=== PATIENT | male | born 1955 | race Hispanic/Latino ===

== ENCOUNTER 2020-05-13 17:10 | Inpatient (IN) | payer OTHER ==
[2020-05-13 19:00] LABS: Absolute Lymphocytes (CBC) 0.8 K/uL (0.7-4.9); Basophils % 0.4 % (0-1.3); Hematocrit 43.2 % (39.6-49.0); Lymphocytes % 3.9 % (15.3-44.8); MPV 7.9 fL (7.6-11.3); RBC Red Blood Cell Count 4.31 M/uL (4.33-5.43)
[2020-05-13 19:03] LABS: Protime INR 1.22
[2020-05-13 19:20] LABS: ALT/SGPT 24 U/L (12-78); AST/SGOT 34 U/L (15-37); Alkaline Phosphatase 61 U/L (45-117); BUN Blood Urea Nitrogen 20 mg/dL (7-18); Bicarbonate 24 mmol/L (21-32); Bilirubin Direct 0.4 mg/dL (0-0.2); Bilirubin Total 1.3 mg/dL (0.2-1.0); Glucose Level 139 mg/dL (74-106); Magnesium 2.4 mg/dL (1.8-2.4); NT PRO-BNP 1478 pg/mL (<125); Potassium 3.9 mmol/L (3.5-5.1); Protein, Total 7.9 g/dL (6.4-8.2); Sodium Level 136 mmol/L (136-145); Troponin (Emerg Dept Use Only) < 0.02 ng/mL (0.0-0.045)
[2020-05-13 19:23] LABS: Blood Morphology Comment NOT SEEN (NOT SEEN); Platelet Estimate ADEQ
--- NOTE | 2020-05-13 20:04 | RAD REPORT ---
EXAM DESCRIPTION: RAD - Chest Single View - 05/13/2020 7:02 pm CLINICAL HISTORY: general weakness, hypertension, back pain COMPARISON: July 2016 TECHNIQUE: AP portable chest image was obtained 05/13/2020 7:02 pm . FINDINGS: No peripheral mass or consolidation. Interstitial markings are prominent but not clearly d ifferent. Heart and vasculature are normal. No measurable pleural effusion and no pneumothorax. No ac jaden bony abnormality seen. No acute aortic findings suspected. IMPRESSION: No acute cardiopulmonary process. No significant change from comparison.
--- NOTE | 2020-05-13 21:31 | ER ---
Nurse's Notes [facility] [place] [address] [place] Name: Jorje Stewart Age: 64 yrs Sex: Male : 1955 Arrival Date: 05/13/2020 Time: 17:18 Bed 26 Private MD: Diagnosis: Urinary tract infection, site not specified Presentation: 05/13 17:18 Chief complaint: Chief complaint: EMS states: Back pain, upper to lower, x 2 days. ca1 Headache x 2 days. No fever. No medical Hx. No allergies. No medications. VS WNL. BGL 115. Risk Assessment: Do you want to hurt yourself or someone else? Patient reports no desire to harm self or others. 17:18 Method Of Arrival: EMS: [facility] ca1 17:18 Acuity: ARGENIS 3 ca1 17:24 Coronavirus screen: Client denies travel out of the [place] in the last 14 days. chills, ca1 cough unrelated to allergies, diarrhea, fatigue, headache, nausea, Client presents with at least one sign or symptom that may indicate coronavirus-19. Standard/surgical mask placed on the client. Provider contacted for isolation considerations. Ebola Screen: Patient negative for fever greater than or equal to 101.5 degrees Fahrenheit, and additional compatible Ebola Virus Disease symptoms Patient denies exposure to infectious person. Patient denies travel to an Ebola-affected area in the 21 days before illness onset. No symptoms or risks identified at this time. Initial Sepsis Screen: Does the patient meet any 2 criteria? No. Patient's initial sepsis screen is negative. Does the patient have a suspected source of infection? No. Patient's initial sepsis screen is negative. Onset of symptoms was May 13, 2020. 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 ca1 17:31 Chief complaint: Patient states: Cough x 10 days. Not feeling well for 10 days. Was ca1 diagnosed with UTI 10-11 days ago, still completed ABX. Had diarrhea within 10 days ago. Not at this time. Reports nausea. Here for generalized weakness. Denies back pain. Historical: - Allergies: 17:29 No Known Allergies; ca1 - Home Meds: 17:29 meds for UTI [Active]; meds for diarrhea [Active]; Meds for Headache [Active]; ca1 - PMHx: 17:29 Hypertension; ca1 - PSHx: 17:29 Hernia repair; ca1 - Immunization history:: Adult Immunizations not up to date. - Social history:: Smoking status: Patient/guardian denies using tobacco, the patient reports quitting approximately 1 years ago. Screenin:30 Abuse screen: Denies threats or abuse. Denies injuries from another. Nutritional jl7 screening: No deficits noted. Tuberculosis screening: No symptoms or risk factors identified. Fall Risk IV access (20 points). Total Edwards Fall Scale indicates No Risk (0-24 pts). Assessment: 18:00 General: Appears in no apparent distress. 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 Pain: Complains of pain in BURGER, stone arms, stone hips. Neuro: Level of Consciousness is awake, alert, obeys commands, Oriented to person, place, time, situation. Cardiovascular: Patient's skin is warm and dry. Respiratory: Airway is patent Respiratory effort is even, unlabored, Respiratory pattern is regular, symmetrical, Denies cough, shortness of breath. GI: Patient currently denies diarrhea, nausea, vomiting. : Reports burning with urination. Derm: Skin is pink, warm \T\ dry. 19:00 Reassessment: Patient appears in no apparent distress at this time. No changes from ll1 previously documented assessment. Patient and/or family updated on plan of care and expected duration. Pain level reassessed. Patient is alert, oriented x 3, equal unlabored respirations, skin warm/dry/pink. 20:00 Reassessment: Patient appears in no apparent distress at this time. No changes from ll1 previously documented assessment. Patient and/or family updated on plan of care and expected duration. Pain level reassessed. Patient is alert, oriented x 3, equal unlabored respirations, skin warm/dry/pink. given warm blanket. 21:00 Reassessment: Patient appears in no apparent distress at this time. No changes from ll1 previously documented assessment. Patient and/or family updated on plan of care and expected duration. Pain level reassessed. Patient is alert, oriented x 3, equal unlabored respirations, skin warm/dry/pink. given another warm blanket, temp rechecked. 22:00 Reassessment: Patient appears in no apparent distress at this time. No changes from ll1 previously documented assessment. Patient and/or family updated on plan of care and expected duration. Pain level reassessed. Patient is alert, oriented x 3, equal unlabored respirations, skin warm/dry/pink. 23:00 Reassessment: Patient appears in no apparent distress at this time. No changes from ll1 previously documented assessment. Patient and/or family updated on plan of care and expected duration. Pain level reassessed. Patient is alert, oriented x 3, equal unlabored respirations, skin warm/dry/pink. Vital Signs: 17:24 BP 110 / 89; Pulse 107; Resp 18 S; Temp 98(O); Pulse Ox 97% on R/A; Weight 90.72 kg ca1 (R); Height 5 ft. 9 in. (175.26 cm) (R); 18:30 BP 124 / 79; Pulse 88; Resp 17; Pulse Ox 97% ; jl7 19:17 BP 138 / 82; Pulse 90; Resp 18; Pulse Ox 96% ; jl7 20:00 BP 138 / 95; Pulse 104; Resp 18; Pulse Ox 98% on R/A; ll1 21:00 BP 138 / 80; Pulse 93; Resp 18; Temp 98.7; Pulse Ox 97% on R/A; ll1 22:00 BP 148 / 77; Pulse 93; Resp 18; Pulse Ox 98% ; ll1 23:38 BP 116 / 75; Pulse 75; Resp 18; Pulse Ox 95% on R/A; ll1 23:56 BP 119 / 72; Pulse 75; Resp 18; Pulse Ox 95% on R/A; ll1 17:24 Body Mass Index 29.54 (90.72 kg, 175.26 cm) ca1 ED Course: 17:18 Patient arrived in ED. ca1 17:20 Triage completed. ca1 17:29 Arm band placed on right wrist. ca1 18:01 Chino Downing, DAVIS is Primary Nurse. jl7 18:03 Scott Hewitt PA is PHCP. cp 18:03 Arnol Chapman MD is Attending Physician. cp 18:30 Patient has correct armband on for positive identification. Placed in gown. Bed in low jl7 position. Call light in reach. Side rails up X2. monitoring coordinator on. Pulse ox on. NIBP on. 18:40 Initial lab(s) drawn, by me, sent to lab. EKG done, by ED staff, reviewed by Scott MCKEON Strep swab sent to lab. COVID-19 swab sent to lab. Inserted saline lock: 20 gauge in right wrist, using aseptic technique. Blood collected. 19:02 XRAY Chest (1 view) In Process Unspecified. EDMS 19:18 Report given to DAVIS Hope. jl7 21:30 Jordy Hart is Hospitalizing Provider. cp 22:10 CT Abd/Pelvis - IV Contrast Only In Process Unspecified. EDMS 23:36 No provider procedures requiring assistance completed. Patient admitted, IV remains in ll1 place. Administered Medications: 21:00 Drug: NS 0.9% 500 ml Route: IV; Rate: bolus; Site: right antecubital; ll1 23:31 Follow up: Response: No adverse reaction; RASS: Alert and Calm (0); IV Status: ll1 Completed infusion; IV Intake: 500ml 21:40 Drug: Rocephin - (cefTRIAXone) 1 grams Route: IVPB; Infused Over: 30 mins; Site: right ll1 antecubital; 23:31 Follow up: Response: No adverse reaction; RASS: Alert and Calm (0); IV Status: ll1 Completed infusion; IV Intake: 20ml Intake: 23:31 IV: 500ml; Total: 500ml. ll1 23:31 IV: 20ml; Total: 520ml. ll1 Outcome: 21:30 Decision to Hospitalize by Provider. cp 23:55 Admitted to Tele accompanied by tech, via stretcher, room 403, with chart, Report ll1 called to DAVIS Marcelino on 23:55 Condition: stable 23:55 Instructed on the need for admit. 05/14 00:01 Patient left the ED. ll1 Signatures: Dispatcher [employer] EDMS Scott Hewitt PA PA cp Chino Downing RN RN jl7 Liliana Manley RN RN ca1 Lewis, Lynsay, RN RN ll1 Corrections: (The following items were deleted from the chart) 05/13 17:26 17:24 BP 110 / 89; Pulse 107bpm; Resp 18bpm; Spontaneous; Pulse Ox 97% RA; Temp 98F ca1 Oral; 90.72 kg Reported; Height 6 ft. 3 in. Reported; BMI: 25.0; ca1 17:36 17:24 Coronavirus screen: Client denies travel out of the [place] in the last 14 days. At ca1 this time, the client does not indicate any symptoms associated with coronavirus-19. ca1 17:38 17:31 Chief complaint: Patient states: Cough x 10 days. Not feeling well for 10 days. ca1 Was diagnosed with UTI 10-11 days ago, still completed ABX. Had diarrhea within 10 days ago. Not at this time. Reports nausea. ca1 21:02 20:00 Reassessment: Patient appears in no apparent distress at this time. No changes ll1 from previously documented assessment. Patient and/or family updated on plan of care and expected duration. Pain level reassessed. Patient is alert, oriented x 3, equal unlabored respirations, skin warm/dry/pink. ll1
--- NOTE | 2020-05-13 21:31 | EDPHYS ---
Physician Documentation [facility] Name: Jorje Stewart Age: 64 yrs Sex: Male : 1955 Arrival Date: 05/13/2020 Time: 17:18 Bed 26 Private MD: ED Physician Arnol Chapman HPI: 05/13 18:48 This 64 yrs old Male presents to ER via EMS with complaints of General cp Weakness. 18:50 The patient's problem is reported as weakness, that is generalized. Onset: The cp symptoms/episode began/occurred 1 week(s) ago. Duration: The episode is continuous. Associated signs and symptoms: Pertinent positives: abdominal pain, urinary symptoms, Pertinent negatives: chest pain, confusion, diarrhea, headache, vomiting. Historical: - Allergies: 17:29 No Known Allergies; ca1 - Home Meds: 17:29 meds for UTI [Active]; meds for diarrhea [Active]; Meds for Headache [Active]; ca1 - PMHx: 17:29 Hypertension; ca1 - PSHx: 17:29 Hernia repair; ca1 - Immunization history:: Adult Immunizations not up to date. - Social history:: Smoking status: Patient/guardian denies using tobacco, the patient reports quitting approximately 1 years ago. ROS: 18:55 Constitutional: Negative for fever, poor PO intake. cp 18:55 Eyes: Negative for injury, pain, redness, and discharge. cp 18:55 ENT: Negative for ear pain, sore throat, difficulty swallowing, difficulty handling secretions. 18:55 Cardiovascular: Negative for chest pain. 18:55 Respiratory: Negative for cough, shortness of breath, wheezing. 18:55 Abdomen/GI: Positive for abdominal pain, Negative for nausea, vomiting, and diarrhea. 18:55 : Positive for urinary symptoms. 18:55 Skin: Negative for rash. 18:55 Neuro: Positive for weakness, Negative for altered mental status, headache. 18:55 All other systems are negative. Exam: 18:47 ECG was reviewed by the Attending Physician. cp 19:00 Constitutional: The patient appears in no acute distress, alert, awake, cp non-diaphoretic, non-toxic, well developed, frail. 19:00 Head/Face: Normocephalic, atraumatic. cp 19:00 Eyes: Periorbital structures: appear normal, Conjunctiva: normal, no exudate, no injection, Sclera: no appreciated abnormality, Lids and lashes: appear normal, bilaterally. 19:00 ENT: External ear(s): are unremarkable, Nose: is normal, Mouth: Lips: moist, Oral mucosa: pink and intact, moist, Posterior pharynx: Airway: no evidence of obstruction, patent, erythema, is not appreciated, exudate, is not appreciated. 19:00 Neck: ROM/movement: is normal, is supple, without pain, no range of motions limitations, no meningismus. 19:00 Chest/axilla: Inspection: normal, Palpation: is normal, no crepitus, no tenderness. 19:00 Cardiovascular: Rate: normal, Rhythm: regular, Edema: is not appreciated, JVD: is not appreciated. 19:00 Respiratory: the patient does not display signs of respiratory distress, Respirations: normal, no use of accessory muscles, no retractions, labored breathing, is not present, Breath sounds: are clear throughout, no decreased breath sounds, no stridor, no wheezing. 19:00 Abdomen/GI: Inspection: abdomen appears normal, Bowel sounds: active, all quadrants, Palpation: soft, in all quadrants, mild abdominal tenderness, in the suprapubic area, rebound tenderness, is not appreciated, voluntary guarding, is not appreciated, involuntary guarding, is not appreciated. 19:00 Back: CVA tenderness, is absent. 19:00 Skin: cellulitis, is not appreciated, no rash present. 19:00 Neuro: Orientation: to person, place \T\ time. Mentation: is normal, Cerebellar function: is grossly normal, Motor: moves all fours, general weakness with no focal deficits, Sensation: is normal. 19:00 CT study not indicated or reported. Reason for not performing CT: no neuro deficits cp Vital Signs: 17:24 BP 110 / 89; Pulse 107; Resp 18 S; Temp 98(O); Pulse Ox 97% on R/A; Weight 90.72 kg ca1 (R); Height 5 ft. 9 in. (175.26 cm) (R); 18:30 BP 124 / 79; Pulse 88; Resp 17; Pulse Ox 97% ; jl7 19:17 BP 138 / 82; Pulse 90; Resp 18; Pulse Ox 96% ; jl7 20:00 BP 138 / 95; Pulse 104; Resp 18; Pulse Ox 98% on R/A; ll1 21:00 BP 138 / 80; Pulse 93; Resp 18; Temp 98.7; Pulse Ox 97% on R/A; ll1 22:00 BP 148 / 77; Pulse 93; Resp 18; Pulse Ox 98% ; ll1 23:38 BP 116 / 75; Pulse 75; Resp 18; Pulse Ox 95% on R/A; ll1 23:56 BP 119 / 72; Pulse 75; Resp 18; Pulse Ox 95% on R/A; ll1 17:24 Body Mass Index 29.54 (90.72 kg, 175.26 cm) ca1 MDM: 18:07 Patient medically screened. cp 19:00 Differential diagnosis: sepsis, uti, electrolyte abnormality, HI, CVA. cp 21:30 Data reviewed: vital signs, nurses notes, lab test result(s), EKG, radiologic studies, cp plain films, and as a result, I will admit patient. 21:30 Test interpretation: by ED physician or midlevel provider: ECG. Physician consultation: trini Hart was contacted at 21:30, regarding admission, to the telemetry unit. patient's condition, and will see patient in ED, shortly, would like further tests performed, CT scan. 05/13 18:21 Order name: Basic Metabolic Panel; Complete Time: 20:37 cp 05/13 20:38 Interpretation: Normal except: GLUC 139; BUN 20; GFR 66. cp 05/13 18:21 Order name: CBC with Diff; Complete Time: 20:37 cp 05/13 21:25 Interpretation: Normal except: WBC 19.6; RBC 4.31; MCV 100.4; KERWIN% 87.5; LYM% 3.9; NEUT cp A 17.1; MNA 1.6. 05/13 18:21 Order name: LFT's; Complete Time: 20:37 cp 08 20:38 Interpretation: Normal except: BILIT 1.3; BILID 0.4; ALB 3.0; GLOB 4.9; A/G 0.6. cp 05/13 18:21 Order name: Magnesium; Complete Time: 20:38 cp 05/13 18:21 Order name: NT PRO-BNP; Complete Time: 20:37 cp 05/13 18:21 Order name: PT-INR; Complete Time: 20:37 cp 08/05 18:21 Order name: Troponin (emerg Dept Use Only); Complete Time: 20:38 cp 08/05 18:21 Order name: COVID-19 cp 08/05 18:21 Order name: Procalcitonin; Complete Time: 20:37 cp 08/05 20:39 Interpretation: Abnormal: Procalcitonin 1.49. cp 08/05 18:21 Order name: Urine Microscopic Only; Complete Time: 22:43 cp 08/05 22:44 Interpretation: Normal except: UWBC 10-20; UBACT 20-50. cp 08/05 19:04 Order name: Manual Differential; Complete Time: 20:37 EDMS 08/05 20:14 Order name: Throat Culture EDMS 08/05 20:54 Order name: Urine Dipstick--Ancillary (enter results); Complete Time: 22:43 mw2 /05 22:44 Interpretation: Normal except: UBLD 2+; UPROT 2+; UESTR TRACE. cp 08/05 18:21 Order name: XRAY Chest (1 view); Complete Time: 20:38 cp 08/05 18:21 Order name: EKG; Complete Time: 18:22 cp 08/05 18:21 Order name: Cardiac monitoring; Complete Time: 19:15 cp 08/05 18:21 Order name: EKG - Nurse/Tech; Complete Time: 19:15 cp 08/05 18:21 Order name: IV Saline Lock; Complete Time: 19:15 cp 08/05 18:21 Order name: Labs collected and sent; Complete Time: 19:14 cp 08/05 18:21 Order name: O2 Per Protocol; Complete Time: 18:26 cp 08/05 18:21 Order name: O2 Sat Monitoring; Complete Time: 18:26 cp 08/05 18:21 Order name: Document PUI#; Complete Time: 23:56 cp 08/05 18:21 Order name: Droplet/Contact Precautions; Complete Time: 18:26 cp 08/05 18:21 Order name: Notify Health Dept [phone]/ ; Complete Time: 23:57 cp 08/05 18:21 Order name: Urine Dipstick-Ancillary (obtain specimen); Complete Time: 23:31 cp 08/05 21:29 Order name: CT Abd/Pelvis - IV Contrast Only cp 05/13 21:47 Order name: Urine Culture EDMS EC:47 Rate is 94 beats/min. Rhythm is regular. SD interval is normal. QRS interval is normal. cp QT interval is normal. T waves are Inverted in leads III, aVR. Interpreted by me. Reviewed by me. Administered Medications: 21:00 Drug: NS 0.9% 500 ml Route: IV; Rate: bolus; Site: right antecubital; ll1 23:31 Follow up: Response: No adverse reaction; RASS: Alert and Calm (0); IV Status: ll1 Completed infusion; IV Intake: 500ml 21:40 Drug: Rocephin - (cefTRIAXone) 1 grams Route: IVPB; Infused Over: 30 mins; Site: right ll1 antecubital; 23:31 Follow up: Response: No adverse reaction; RASS: Alert and Calm (0); IV Status: ll1 Completed infusion; IV Intake: 20ml Disposition: 05/14 08:12 Co-signature as Attending Physician, Arnol Chapman MD I agree with the assessment and kdr plan of care. Disposition: 05/13/20 21:30 Hospitalization ordered by Jordy Hart for Inpatient Admission. Preliminary diagnosis is Urinary tract infection, site not specified. - Bed requested for Telemetry/MedSurg (Inpatient). - Status is Inpatient Admission. ll1 - Condition is Stable. - Problem is new. - Symptoms have improved. Signatures: Dispatcher [employer] EDVT Arnol Chapman MD MD kdr Dodie Witt RN RN tl1 Scott Hewitt PA PA cp Liliana Manley RN RN ca1 Herminia Kong RN RN ll1 Corrections: (The following items were deleted from the chart) 05/13 20:14 18:22 Group A Streptococcus Rapid Sc+[id number].LAB.BRZ ordered. EDMS EDMS 21:25 20:38 Normal except: WBC 19.6; RBC 4.31; MCV 100.4; KERWIN% 87.5; LYM% 3.9; NEUT A 17.1. cpcp 23:14 21:30 Hospitalization Ordered by Jordy Hart for Inpatient Admission. Preliminary tl1 diagnosis is Urinary tract infection, site not specified. Bed requested for Telemetry/MedSurg (Inpatient). Status is Inpatient Admission. Condition is Stable. Problem is new. Symptoms have improved. cp 05/14 00:01 05/13 23:14 05/13/2020 21:30 Hospitalization Ordered by Jordy Hart for Inpatient ll1 Admission. Preliminary diagnosis is Urinary tract infection, site not specified. Bed requested for Telemetry/MedSurg (Inpatient). Status is Inpatient Admission. Condition is Stable. Problem is new. Symptoms have improved. tl1
[2020-05-13] MEDS ORDERED: CEFTRIAXONE/SWI 1gm 1 GM/10 ML SYR ONE (21:43)
[2020-05-13 21:45] LABS: Urine RBC <5 /HPF (NONE SEEN)
[2020-05-13 21:46] LABS: Urine Bacteria 20-50 /HPF (NONE SEEN); Urine Culture Reflex Order REFLEXED
[2020-05-13 21:47] LABS: Urine Blood 2+ (NEG); Urine Glucose NEGATIVE (NEG); Urine Protein 2+ (NEG); Urine Specific Gravity 1.025 (1.005-1.030); Urine pH 5.5 (5.0-7.0)
--- NOTE | 2020-05-13 22:23 | P.HP ---
Certification for Inpatient Patient admitted to: Inpatient With expected LOS: >2 Midnights Practitioner: I am a practitioner with admitting privileges, knowledge of patient current condition, hospital course, and medical plan of care. Services: Services provided to patient in accordance with Admission requirements found in Title 42 Section 412.3 of the Code of Federal Regulations Patient History Date of Service: 05/13/20 Reason for admission: General malaise History of Present Illness: 64-year-old Ethiopian-speaking gentleman with a history of BPH and hypertension presented to the ED with a complaint of general malaise of about 3 days duration. Patient also reported nausea and mild back pain. Blood work in the ED shows leukocytosis. Patient was tachycardic in the ED and meet criteria for sepsis. His pro calcitonin is elevated and UA suggest the presence of UTI. Sepsis protocol initiated in the ED. Patient is admitted for further management of UTI with sepsis. Allergies No Known Allergies Allergy (Verified 07/11/16 08:46) Home Medications: NK [No Home Meds] 05/14/20 - Past Medical/Surgical History Diabetic: No -: BPH -: Hypertension -: Hernia repair - Family History Family History: Reviewed- Non-Contributory - Family History Brother -: Heart disease, Diabetes - Social History Alcohol use: Yes CD- Drugs: No Caffeine use: No Review of Systems Other: Except as documented, all other systems reviewed and negative. Physical Examination - Physical Exam General: Alert, In no apparent distress, Oriented x3 HEENT: Mucous membr. moist/pink, Sclerae nonicteric Neck: Supple, JVD not distended Respiratory: Clear to auscultation bilaterally, Normal air movement Cardiovascular: No edema, Regular rate/rhythm, Normal S1 S2 Capillary refill: <2 Seconds Gastrointestinal: Normal bowel sounds, Soft and benign, Non-distended, No tenderness Musculoskeletal: No swelling, No erythema Integumentary: No rashes Neurological: Normal strength at 5/5 x4 extr, Cranial nerves 3-12 intact - Studies Laboratory Data (last 24 hrs) 05/13/20 18:43: PT 14.3 H, INR 1.22 05/13/20 18:43: WBC 19.6 H, Hgb 14.7, Hct 43.2, Plt Count 211 05/13/20 18:43: Sodium 136, Potassium 3.9, BUN 20 H, Creatinine 1.11, Glucose 139 H, Magnesium 2.4, Total Bilirubin 1.3 H, AST 34, ALT 24, Alkaline Phosphatase 61 Assessment and Plan - Problems (Diagnosis) (1) Sepsis Current Visit: No Status: Acute (2) UTI (urinary tract infection) Onset Date: 07/11/16 Current Visit: No Status: Acute Qualifiers: (3) BPH (benign prostatic hyperplasia) Current Visit: No Status: Acute (4) HTN (hypertension) Current Visit: No Status: Acute Qualifiers: (5) Acute pyelonephritis Current Visit: Yes Status: Acute - Plan Admit to the medical floor. Continue sepsis protocol initiated in the ED. Treat with IV vancomycin and cefepime Follow urine culture and blood cultures Hydrate with IV normal saline. - Advance Directives Does patient have a Living Will: No Does patient have a Durable POA for Healthcare: No
[2020-05-14 01:43] VITALS: BMI 23.9
[2020-05-14] MEDS ORDERED: NA CHLORIDE 0.9% 0 ML ONE (01:57)
[2020-05-14] MEDS ORDERED: VANCOMYCIN 1 GM/VIAL ONE (01:57)
[2020-05-14] MEDS: NA CHLORIDE 0.9% 1,000 ML IV SCH ×3 (01:59→20:46)
[2020-05-14] MEDS: ACETAMINOPHEN 500 MG TAB PO PRN ×4 (02:00→20:44)
[2020-05-14] MEDS: VANCOMYCIN 1.5 GM in NA CHLORIDE 0.9% 500 ML IVPB SCH ×2 (02:00→20:45)
[2020-05-14] MEDS ORDERED: NA CHLORIDE 0.9% 500 ML ONE (02:02)
[2020-05-14] MEDS ORDERED: VANCOMYCIN 500 MG/VIAL ONE (02:02)
[2020-05-14 04:18] LABS: Absolute Lymphocytes (CBC) 0.6 K/uL (0.7-4.9); Basophils % 0.1 % (0-1.3); Hematocrit 39.6 % (39.6-49.0); Lymphocytes % 4.4 % (15.3-44.8); MPV 8.8 fL (7.6-11.3); RBC Red Blood Cell Count 3.93 M/uL (4.33-5.43)
[2020-05-14 04:33] LABS: Albumin 2.6 g/dL (3.4-5.0); Bilirubin Total 1.2 mg/dL (0.2-1.0); Magnesium 1.9 mg/dL (1.8-2.4); Phosphorus 2.2 mg/dL (2.5-4.9); Potassium 3.5 mmol/L (3.5-5.1); Protein, Total 6.8 g/dL (6.4-8.2)
[2020-05-14] MEDS: ENOXAPARIN 40 MG/0.4 ML SQ SCH (07:24)
[2020-05-14] MEDS: POTASS/SODIUM PHOSPHATE 1 PKT POWD.PACK PO SCH ×3 (07:26→10:31)
[2020-05-14] MEDS ORDERED: POTASSIUM 25 MEQ EFFERV TAB PO ONE (08:00)
[2020-05-14] MEDS ORDERED: CEFEPIME 1 GM/VIAL IV SCH (09:00)
[2020-05-14] MEDS: CEFEPIME/SWI 1gm 10 ML IV SCH ×2 (09:26→20:45)
--- NOTE | 2020-05-14 10:00 | P.PN ---
Subjective Date of Service: 05/14/20 Chief Complaint: General malaise Patient states he feels better. He has good appetite. Low-grade fever noted. Physical Examination - Vital Signs Temperature: 97 F Blood Pressure: 141/84 Pulse: 78 Respirations: 18 Pulse Ox (%): 99 - Physical Exam General: Alert, In no apparent distress HEENT: Mucous membr. moist/pink Neck: Supple, JVD not distended Respiratory: Clear to auscultation bilaterally, Normal air movement Cardiovascular: No edema, Regular rate/rhythm, Normal S1 S2 Capillary refill: <2 Seconds Gastrointestinal: Normal bowel sounds, Soft and benign, Non-distended, No tenderness Musculoskeletal: No swelling, No erythema Integumentary: No rashes Neurological: Other (Nonfocal) - Studies Laboratory Data (last 24 hrs) 05/13/20 18:43: PT 14.3 H, INR 1.22 05/13/20 18:43: WBC 19.6 H, Hgb 14.7, Hct 43.2, Plt Count 211 05/13/20 18:43: Sodium 136, Potassium 3.9, BUN 20 H, Creatinine 1.11, Glucose 139 H, Magnesium 2.4, Total Bilirubin 1.3 H, AST 34, ALT 24, Alkaline Phosphatase 61 Assessment And Plan - Current Problems (Diagnosis) (1) Sepsis Current Visit: No Status: Acute (2) UTI (urinary tract infection) Onset Date: 07/11/16 Current Visit: No Status: Acute Qualifiers: (3) BPH (benign prostatic hyperplasia) Current Visit: No Status: Acute (4) HTN (hypertension) Current Visit: No Status: Acute Qualifiers: (5) Acute pyelonephritis Current Visit: Yes Status: Acute - Plan Continue IV vancomycin and cefepime. Follow urine culture and blood cultures Hydrate with IV normal saline. Monitor CBC. Follow COVID 19 test result.
--- NOTE | 2020-05-14 10:29 | RAD REPORT ---
EXAM DESCRIPTION: CT - Abdomen Pelvis W Contrast - 05/13/2020 10:09 pm CLINICAL HISTORY: ABD PAIN COMPARISON: None Available. TECHNIQUE: CT of the abdomen and pelvis performed following IV administration of iodinated contras t. FINDINGS: Lung Bases: Minimal left basilar dependent atelectasis. Bones: Multilevel degenerative endplate spondylosis and facet arthropathy with osseous neural foramin al narrowing. Degenerative disc height narrowing throughout the visualized spine, most severe at L3/4 and L5/S1. Abdomen: Liver: The liver has normal size and density. No intrahepatic biliary dilatation. Gallbladder: No calcified gallstones. Spleen, Pancreas, and Adrenal Glands: The spleen, pancreas, and adrenal glands are unremarkable. Kidneys: No hydronephrosis or obstructing calculus. Ill-defined areas of hypodensity throughout t he left renal cortex with adjacent inflammatory change. Vasculature: Aortoiliac atherosclerosis. IVC is unremarkable. The portal vein is patent. The proxim al visceral and renal arteries are patent. Stomach: The stomach and duodenum have normal course. Other: No free intraperitoneal air. No free fluid or lymphadenopathy. Pelvis: Bladder: Urinary bladder is unremarkable. Bowel: No dilated loops of large or small bowel. Scattered diverticula of the colon. Appendix: Normal appendix. Pelvis: Enlarged prostate. IMPRESSION: 1. Findings suggestive of pyelonephritis of the left kidney. 2. Diverticulosis without evidence of acute diverticulitis. 3. Enlarged prostate. This exam was performed according to our departmental dose-optimization program, which includes autom ated exposure control, adjustment of the mA and/or kV according to patient size and/or use of iterati ve reconstruction technique. Electronically signed by: Garry Escamilla 05/13/2020 10:26 PM CDT Due to temporary technical issues with the PACS/Fluency reporting system, reports are being signed by the in house radiologist without review as a courtesy to ensure prompt reporting. The interpreting r adiologist is fully responsible for the content of the report.
[2020-05-15] MEDS: ACETAMINOPHEN 500 MG TAB PO PRN ×3 (01:20→23:39)
[2020-05-15 04:40] LABS: Absolute Lymphocytes (CBC) 0.6 K/uL (0.7-4.9); Basophils % 0.2 % (0-1.3); Hematocrit 36.8 % (39.6-49.0); Lymphocytes % 6.8 % (15.3-44.8); RBC Red Blood Cell Count 3.65 M/uL (4.33-5.43)
[2020-05-15 04:46] LABS: BUN Blood Urea Nitrogen 14 mg/dL (7-18); Bicarbonate 21 mmol/L (21-32); Glucose Level 116 mg/dL (74-106); Magnesium 1.9 mg/dL (1.8-2.4); Phosphorus 2.6 mg/dL (2.5-4.9); Potassium 3.4 mmol/L (3.5-5.1); Sodium Level 139 mmol/L (136-145)
[2020-05-15] MEDS: NA CHLORIDE 0.9% 1,000 ML IV SCH ×4 (06:15→23:42)
[2020-05-15] MEDS ORDERED: POTASSIUM CL SA 10 MEQ TAB PO ONE ×2 (08:00→17:00)
[2020-05-15] MEDS: ENOXAPARIN 40 MG/0.4 ML SQ SCH (08:17)
[2020-05-15] MEDS: CEFEPIME/SWI 1gm 10 ML IV SCH ×2 (08:18→21:16)
--- NOTE | 2020-05-15 08:57 | P.PN ---
Subjective Date of Service: 05/15/20 Chief Complaint: General malaise Patient states he feels better. He has good appetite. Patient is eating well. No fever since yesterday. Physical Examination - Vital Signs Temperature: 99.8 F Blood Pressure: 149/77 Pulse: 84 Respirations: 16 Pulse Ox (%): 97 - Physical Exam General: Alert, In no apparent distress Neck: Supple Respiratory: Clear to auscultation bilaterally, Normal air movement Cardiovascular: No edema, Regular rate/rhythm, Normal S1 S2 Gastrointestinal: Normal bowel sounds, Soft and benign, Non-distended, No tenderness Musculoskeletal: No swelling, No erythema Integumentary: No rashes Neurological: Other (Nonfocal) Assessment And Plan - Current Problems (Diagnosis) (1) Sepsis Current Visit: No Status: Acute (2) UTI (urinary tract infection) Onset Date: 07/11/16 Current Visit: No Status: Acute Qualifiers: (3) BPH (benign prostatic hyperplasia) Current Visit: No Status: Acute (4) HTN (hypertension) Current Visit: No Status: Acute Qualifiers: (5) Acute pyelonephritis Current Visit: Yes Status: Acute - Plan Urine culture is growing mixed julianna. Blood culture: no growth to date Continue IV vancomycin and cefepime. Follow urine culture and blood cultures Hydrate with IV normal saline. Monitor CBC. I am informed COVID 19 test is negative.
[2020-05-15] MEDS: VANCOMYCIN 1.5 GM in NA CHLORIDE 0.9% 500 ML IVPB SCH (12:42)
[2020-05-15 23:49] VITALS: O2SAT 99
[2020-05-16] MEDS: ACETAMINOPHEN 500 MG TAB PO PRN (04:51)
[2020-05-16 06:19] LABS: Absolute Lymphocytes (CBC) 0.5 K/uL (0.7-4.9); Basophils % 0.5 % (0-1.3); Hematocrit 35.6 % (39.6-49.0); Lymphocytes % 7.3 % (15.3-44.8); MPV 8.8 fL (7.6-11.3); RBC Red Blood Cell Count 3.55 M/uL (4.33-5.43)
[2020-05-16 06:36] LABS: BUN Blood Urea Nitrogen 9 mg/dL (7-18); Bicarbonate 22 mmol/L (21-32); Glucose Level 100 mg/dL (74-106); Sodium Level 140 mmol/L (136-145)
[2020-05-16 06:47] LABS: Potassium 3.8 mmol/L (3.5-5.1)
[2020-05-16] MEDS: VANCOMYCIN 1.5 GM in NA CHLORIDE 0.9% 500 ML IVPB SCH (07:00)
[2020-05-16] MEDS: CEFEPIME/SWI 1gm 10 ML IV SCH (08:13)
[2020-05-16] MEDS: ENOXAPARIN 40 MG/0.4 ML SQ SCH (08:14)
--- NOTE | 2020-05-16 08:43 | P.DS ---
Admission Date: 05/13/20 Discharge Date: 05/16/20 Disposition: ROUTINE DISCHARGE Discharge Condition: FAIR Reason for Admission: General malaise - Problems (1) Sepsis Current Visit: No Status: Acute (2) UTI (urinary tract infection) Onset Date: 07/11/16 Current Visit: No Status: Acute Qualifiers: (3) BPH (benign prostatic hyperplasia) Current Visit: No Status: Acute (4) HTN (hypertension) Current Visit: No Status: Acute Qualifiers: (5) Acute pyelonephritis Current Visit: Yes Status: Acute Brief History of Present Illness: 64-year-old Danish-speaking gentleman with a history of BPH and hypertension presented to the ED with a complaint of general malaise of about 3 days duration. Patient also reported nausea and mild back pain. Blood work in the ED shows leukocytosis. Patient was tachycardic in the ED and meet criteria for sepsis. His pro calcitonin is elevated and UA suggest the presence of UTI. Sepsis protocol initiated in the ED. Patient was admitted for further management of UTI with sepsis. Hospital Course: Patient admitted to the medical floor and treated with aggressive antibiotic therapy with IV cefepime and vancomycin. Blood culture yielded no growth. Urine culture grew E. coli sensitive to cephalosporin, Augmentin and fluoroquinolones. Note CT abdomen and pelvis reported findings suggestive of left pyelonephritis. Patient's symptoms resolved with treatment. He is currently asymptomatic and deemed clinically stable for discharge. Patient is prescribed Augmentin on discharge to complete at least 10 days of treatment. Vital Signs/Physical Exam: Temp Pulse Resp BP Pulse Ox 98.5 F 75 18 161/79 H 98 05/16/20 04:00 05/16/20 04:00 05/16/20 04:00 05/16/20 04:00 05/16/20 04:00 General: Alert, In no apparent distress Respiratory: Clear to auscultation bilaterally, Normal air movement Cardiovascular: No edema, Regular rate/rhythm, Normal S1 S2 Gastrointestinal: Normal bowel sounds, Soft and benign, Non-distended, No tenderness Musculoskeletal: No swelling, No erythema Integumentary: No rashes, No tenderness/swelling Neurological: Other (Nonfocal) Laboratory Data at Discharge: WBC 7.3 K/uL (4.3-10.9) D 05/16/20 06:04 Hgb 12.4 g/dL (13.6-17.9) L 08/08/20 06:04 Hct 35.6 % (39.6-49.0) L 05/16/20 06:04 Plt Count 162 K/uL (152-406) 05/16/20 06:04 PT 14.3 SECONDS (9.5-12.5) H 05/13/20 18:43 INR 1.22 05/13/20 18:43 Sodium 140 mmol/L (136-145) 05/16/20 06:04 Potassium 3.8 mmol/L (3.5-5.1) 05/16/20 06:04 BUN 9 mg/dL (7-18) 05/16/20 06:04 Creatinine 0.65 mg/dL (0.55-1.3) 05/16/20 06:04 Glucose 100 mg/dL (74-106) 05/16/20 06:04 Phosphorus 2.6 mg/dL (2.5-4.9) 05/15/20 03:31 Magnesium 1.9 mg/dL (1.8-2.4) 05/15/20 03:31 Total Bilirubin 1.2 mg/dL (0.2-1.0) H 05/14/20 03:21 AST 57 U/L (15-37) H 05/14/20 03:21 ALT 34 U/L (12-78) 05/14/20 03:21 Alkaline Phosphatase 49 U/L (45-117) 05/14/20 03:21 Home Medications: Amoxicillin/Potassium Clav [Augmentin 875-125 Tablet] 1 each PO BID #16 tablet 05/16/20 New Medications: Amoxicillin/Potassium Clav [Augmentin 875-125 Tablet] 1 each PO BID #16 tablet Diet: AHA Activity: Ad andre Time spent managing pt's care (in minutes): 40
[2020-05-16] MEDS ORDERED: POTASSIUM CL SA 10 MEQ TAB PO ONE (09:00)
[2020-05-16 12:25] VITALS: BP 136/65; TEMP 97.5
[2020-05-16] MEDS ORDERED: VANCOMYCIN 1.5 GM in NA CHLORIDE 0.9% 500 ML IVPB SCH (19:00)
== END 2020-05-16 11:10 | disposition home or self-care (01) | DRG 872 ==
LOC: ER 17:10 → ERHOLD 22:44 → 4TH 23:57 → 2ND 05-14 16:09
PROVIDERS: ADMIT Internal Medicine; ATTEND Internal Medicine
DX: A41.9 Sepsis, unspecified organism (principal); N39.0 Urinary tract infection, site not specified; N10 Acute pyelonephritis; I10 Essential (primary) hypertension; N40.0 Benign prostatic hyperplasia without lower urinary tract symptoms; Z11.59 Encounter for screening for other viral diseases
CPT/HCPCS: 36415; 71045; 74177; 80048; 80053; 80076; 80202; 81003; 81015; 83735; 83880; 84100; 84132; 84145; 84484; 85025; 85610; 87040; 87070; 87077; 87086; 87088; 87186; 87205; 93005; 94760; 96361; 96365; 96366; 99285; J0692; J0696; J1650; J3370; J7030; J7040; J7050; Q9967

== ENCOUNTER 2020-06-27 11:35 | Emergency (ER) | payer OTHER ==
[2020-06-27 12:34] LABS: Urine Blood 2+ (NEG); Urine Glucose NEGATIVE (NEG); Urine Protein NEGATIVE (NEG); Urine Specific Gravity 1.015 (1.005-1.030); Urine pH 5.5 (5.0-7.0)
[2020-06-27 12:44] LABS: Basophils % 0.3 % (0-1.3); Hematocrit 36.1 % (39.6-49.0); Lymphocytes % 16.9 % (15.3-44.8); MPV 7.6 fL (7.6-11.3); RBC Red Blood Cell Count 3.62 M/uL (4.33-5.43)
[2020-06-27 12:54] LABS: ALT/SGPT 30 U/L (12-78); AST/SGOT 32 U/L (15-37); Alkaline Phosphatase 45 U/L (45-117); BUN Blood Urea Nitrogen 15 mg/dL (7-18); Bicarbonate 22 mmol/L (21-32); Bilirubin Direct 0.3 mg/dL (0-0.2); Glucose Level 93 mg/dL (74-106); Lipase 87 U/L (73-393); Protein, Total 7.1 g/dL (6.4-8.2); Sodium Level 139 mmol/L (136-145)
--- NOTE | 2020-06-27 14:14 | RAD REPORT ---
EXAM DESCRIPTION: CT - Abdomen Pelvis W Contrast - 06/27/2020 2:00 pm CLINICAL HISTORY: Abdominal pain COMPARISON: May 13, 2020 TECHNIQUE: Computed axial tomography of the abdomen pelvis was obtained. 100 cc Isovue-300 was admin istered intravenously. Oral contrast was not requested which limits evaluation of bowel. All CT scans are performed using dose optimization technique as appropriate and may include automated exposure control or mA/KV adjustment according to patient size. FINDINGS: Small low-density areas within the left kidney reach the periphery. This may indicate pyel onephritis. The right kidney is unremarkable Mild fatty infiltration of the liver The spleen, pancreas and adrenals unremarkable. Normal appendix. No evidence of diverticulitis. Prostate gland is moderately enlarged. Bladder wall t hickening Spondylosis involves the lumbar spine IMPRESSION: Small low-density areas within the left kidney may indicate mild pyelonephritis Moderate prostatic enlargement Bladder wall thickening may be related to chronic outlet obstruction or cystitis
--- NOTE | 2020-06-27 14:54 | ER ---
Nurse's Notes [facility] Name: Jorje Stewart Age: 64 yrs Sex: Male : 1955 Arrival Date: 06/27/2020 Time: 11:42 Bed 7 Private MD: Diagnosis: Urinary tract infection, site not specified Presentation: 06/27 11:45 Chief complaint: Patient states: generalized weakness and nausea x 5 days ago. Pt aa5 denies vomiting, denies diarrhea. Pt reports lower back pain worse to left low back and reports diagnosed with recent UTI and states "the doctor called me in some more antibiotics yesterday but I haven't picked them up from the pharmacy yet". Pt also reports a few days ago he had some abdominal pain around umbilical area but not anymore, also states he vomited once 4 days ago but none since then. 11:45 Coronavirus screen: Client denies travel out of the [place] in the last 14 days. At this aa5 time, the client does not indicate any symptoms associated with coronavirus-19. Ebola Screen: Patient negative for fever greater than or equal to 101.5 degrees Fahrenheit, and additional compatible Ebola Virus Disease symptoms. Initial Sepsis Screen: Does the patient meet any 2 criteria? No. Patient's initial sepsis screen is negative. Does the patient have a suspected source of infection? No. Patient's initial sepsis screen is negative. Risk Assessment: Do you want to hurt yourself or someone else? Patient reports no desire to harm self or others. Onset of symptoms was June 2020. 11:45 Acuity: ARGENIS 3 aa5 11:45 Method Of Arrival: Ambulatory aa5 Historical: - Allergies: 12:54 Silvadene; aa5 12:54 Sulfadiazine; aa5 - PMHx: 11:50 Hypertension; aa5 - PSHx: 11:50 Hernia repair; aa5 - Immunization history:: Adult Immunizations unknown. - Social history:: Smoking status: Patient denies any tobacco usage or history of. Screenin:45 Abuse screen: Denies threats or abuse. Nutritional screening: No deficits noted. aa5 Tuberculosis screening: No symptoms or risk factors identified. Fall Risk IV access (20 points). Total Edwards Fall Scale indicates No Risk (0-24 pts). Assessment: 11:45 General: Appears comfortable, Behavior is calm, cooperative. Pain: Complains of pain in aa5 left low back and right low back Pain does not radiate. Pain currently is 5 out of 10 on a pain scale. Quality of pain is described as aching, Is continuous. 11:45 Neuro: Level of Consciousness is awake, alert, obeys commands, Oriented to person, aa5 place, time, situation, Manager Technical Support are equal bilaterally Moves all extremities. Gait is steady, Speech is normal, Facial symmetry appears normal, Reports Generalized weakness . Cardiovascular: Heart tones S1 S2 present Rhythm is regular. Respiratory: Airway is patent Respiratory effort is even, unlabored, Respiratory pattern is regular, symmetrical. GI: Abdomen is round non-distended, Bowel sounds present X 4 quads. Abd is soft and non tender X 4 quads. Reports nausea. : Reports burning with urination. EENT: No signs and/or symptoms were reported regarding the EENT system. Derm: Skin is pink, warm \\T\\ dry. Musculoskeletal: Range of motion: intact in all extremities. 12:45 Reassessment: Called [facility] pharmacy in [facility] to verify antibiotics. [facility] reports aa5 that pt finished Augmentin and that it was changed to Bactrim DS yesterday but they are trying to verify pt's allergies because they have that pt is allergic to Sulfa. Pt's friend now at bedside and pt's friend is more reliable historian than pt and she reports that pt is allergic to Silvadene, pt's friend states "he is allergic to Silvadene and I think it has sulfa in it so we always say he's allergic to Sulfa" . 13:00 Reassessment: Patient is alert, oriented x 3, equal unlabored respirations, skin aa5 warm/dry/pink. 14:30 Reassessment: Patient is alert, oriented x 3, equal unlabored respirations, skin aa5 warm/dry/pink. Awaiting disposition, pt notified of wait time. . 15:40 Reassessment: Patient is alert, oriented x 3, equal unlabored respirations, skin jl7 warm/dry/pink. Vital Signs: 11:45 BP 111 / 75; Pulse 74; Resp 18 S; Temp 99.1(O); Pulse Ox 99% on R/A; Weight 71.21 kg aa5 (R); Height 5 ft. 11 in. (180.34 cm) (R); Pain 0/10; 13:00 BP 118 / 77; Pulse 66; Resp 17 S; Pulse Ox 100% on R/A; aa5 15:40 BP 134 / 89; Pulse 72; Resp 15; Pulse Ox 100% ; jl7 11:45 Body Mass Index 21.90 (71.21 kg, 180.34 cm) aa5 ED Course: 11:42 Patient arrived in ED. bg2 11:44 Kevyn Serna PA is PHCP. jmm 11:44 Scott Rose MD is Attending Physician. jmm 11:45 Arm band placed on Patient placed in an exam room, on a stretcher. aa5 11:45 Patient has correct armband on for positive identification. Placed in gown. Bed in low aa5 position. Call light in reach. Side rails up X2. 12:10 Triage completed. aa5 12:27 Inserted saline lock: 20 gauge in right antecubital area, using aseptic technique. aa5 Blood collected. 12:27 Initial lab(s) drawn, by mn, sent to lab. First set of blood cultures drawn by me. aa5 12:45 Second set of blood cultures drawn by me. Inserted saline lock: 20 gauge in right hand, aa5 using aseptic technique. 13:03 Karely Quintero, RN is Primary Nurse. aa5 14:00 CT completed. Patient tolerated procedure well. Patient moved back from CT. bq 14:00 CT Abd/Pelvis - IV Contrast Only In Process Unspecified. EDMS 15:40 No provider procedures requiring assistance completed. IV discontinued, intact, jl7 bleeding controlled, No redness/swelling at site. Pressure dressing applied. Administered Medications: 15:30 Drug: Rocephin 1 grams Route: IV; Rate: calculated rate; Site: right hand; jl7 15:33 Follow up: Response: No adverse reaction; IV Status: Completed infusion jl7 15:30 Drug: Cipro 500 mg Route: PO; jl7 15:40 Follow up: Response: Medication administered at discharge. jl7 Outcome: 14:54 Discharge ordered by . jm 15:40 Discharged to home ambulatory, with family. jl7 15:40 Condition: stable 15:40 Discharge instructions given to patient, family, Instructed on discharge instructions, follow up and referral plans. medication usage, Demonstrated understanding of instructions, follow-up care, medications, Prescriptions given X 2. 15:41 Patient left the ED. aa5 Addendum: 06/30/2020 11:33 Addendum: Culture Results: Positive urine culture. No further action required. Bacteria h b sensitive to prescribed antibiotic. Signatures: Dispatcher [employer] EDMS Kevyn Serna PA PA jmm Quilty, Betty bq Calderon, Audri RN RN Jennifer Sarah [facility] Ginger Braga RN RN Chino Downing, DAVIS RN jl7 Corrections: (The following items were deleted from the chart) 06/27 12:54 11:50 Allergies: No Known Allergies; nathen aa5 13:04 11:44 Chino Downing, DAVIS is Primary Nurse. jl7 nathen 13:04 13:03 Primary Nurse role handed off by Chino Downing RN aa5 aa5
--- NOTE | 2020-06-27 14:54 | EDPHYS ---
Physician Documentation [facility] Name: Jorje Stewart Age: 64 yrs Sex: Male : 1955 Arrival Date: 06/27/2020 Time: 11:42 Bed 7 Private MD: ED Physician Scott Rose HPI: 06/27 11:45 This 64 yrs old Male presents to ER via Ambulatory with complaints of jmm Abdominal Pain, Pain With Urination, Vomiting, Weakness. 11:45 The patient presents with abdominal pain. Onset: The symptoms/episode began/occurred jmm gradually, 1 week(s) ago. The symptoms do not radiate. Associated signs and symptoms: Pertinent positives: dysuria, Pertinent negatives: nausea and vomiting, diarrhea. The symptoms are described as achy. This is a 64 year old male with a history of htn that presents to the ED with complaints of abdominal pain, dysuria and back pain beginning approx 1 week ago. Patient prescribed abx which was ineffective. Denies vomiting at this time. . Historical: - Allergies: 12:54 Silvadene; aa5 12:54 Sulfadiazine; aa5 - PMHx: 11:50 Hypertension; aa5 - PSHx: 11:50 Hernia repair; aa5 - Immunization history:: Adult Immunizations unknown. - Social history:: Smoking status: Patient denies any tobacco usage or history of. ROS: 11:45 Cardiovascular: Negative for chest pain, palpitations, and edema, Respiratory: Negative jmm for shortness of breath, cough, wheezing, and pleuritic chest pain. 11:45 Constitutional: Positive for body aches, chills. 11:45 Abdomen/GI: Positive for abdominal pain. 11:45 Back: Positive for radiated pain. 11:45 All other systems are negative. Exam: 11:45 Constitutional: This is a well developed, well nourished patient who is awake, alert, jmm and in no acute distress. Head/Face: atraumatic. Eyes: EOMI, no conjunctival erythema appreciated ENT: Moist Mucus Membranes Neck: Trachea midline, Supple Chest/axilla: Normal chest wall appearance and motion. Cardiovascular: Regular rate and rhythm. No edema appreciated Respiratory: Normal respirations, no respiratory distress appreciated 11:45 Back: Normal ROM Skin: General appearance color normal MS/ Extremity: Moves all extremities, no obvious deformities appreciated, no edema noted to the lower extremities Neuro: Awake and alert, normal gait Psych: Behavior is normal, Mood is normal, Patient is cooperative and pleasant 11:45 Abdomen/GI: Inspection: abdomen appears normal, Bowel sounds: normal, Palpation: soft, mild abdominal tenderness, in the suprapubic area. Vital Signs: 11:45 BP 111 / 75; Pulse 74; Resp 18 S; Temp 99.1(O); Pulse Ox 99% on R/A; Weight 71.21 kg aa5 (R); Height 5 ft. 11 in. (180.34 cm) (R); Pain 0/10; 13:00 BP 118 / 77; Pulse 66; Resp 17 S; Pulse Ox 100% on R/A; aa5 15:40 BP 134 / 89; Pulse 72; Resp 15; Pulse Ox 100% ; jl7 11:45 Body Mass Index 21.90 (71.21 kg, 180.34 cm) aa5 MDM: 11:45 Patient medically screened. tamanna 14:52 Data reviewed: vital signs, nurses notes. Counseling: I had a detailed discussion with thad the patient and/or guardian regarding: the historical points, exam findings, and any diagnostic results supporting the discharge/admit diagnosis, lab results, the need for outpatient follow up, to return to the emergency department if symptoms worsen or persist or if there are any questions or concerns that arise at home. ED course: Patient is alert and non toxic in appearance in the ED. Previous urine culture was reviewed. Patient will be covered with oral abx and is advised to return to the ED if symptoms worsen. Patient understood and agrees with the plan of care. . 06/27 12:11 Order name: Basic Metabolic Panel; Complete Time: 13:00 [facility] 06/27 12:11 Order name: CBC with Diff; Complete Time: 13:00 [facility] 06/27 12:11 Order name: Hepatic Function; Complete Time: 13:00 [facility] 06/27 12:11 Order name: Lipase; Complete Time: 13:00 [facility] 06/27 12:11 Order name: Urine Culture [facility] 06/27 12:13 Order name: Procalcitonin; Complete Time: 13:06 [facility] 06/27 12:11 Order name: IV Saline Lock; Complete Time: 12:30 [facility] 06/27 12:11 Order name: Labs collected and sent; Complete Time: 12:30 [facility] 06/27 12:13 Order name: Lactate; Complete Time: 13:00 [facility] 06/27 12:13 Order name: Blood Culture Adult (2) [facility] 06/27 12:21 Order name: Urine Dipstick--Ancillary (enter results); Complete Time: 13:00 06/27 13:24 Order name: CT Abd/Pelvis - IV Contrast Only; Complete Time: 14:16 [facility] 06/27 12:11 Order name: Urine Dipstick-Ancillary (obtain specimen); Complete Time: 12:20 [facility] Administered Medications: 15:30 Drug: Rocephin 1 grams Route: IV; Rate: calculated rate; Site: right hand; [facility] 15:33 Follow up: Response: No adverse reaction; IV Status: Completed infusion [facility] 15:30 Drug: Cipro 500 mg Route: PO; [facility] 15:40 Follow up: Response: Medication administered at discharge. [facility] Disposition: 06/28 07:31 Co-signature as Attending Physician, Scott Rose MD I agree with the assessment and tamanna plan of care. Disposition: 06/27/20 14:54 Discharged to Home. Impression: Urinary tract infection, site not specified. - Condition is Stable. - Discharge Instructions: Urinary Tract Infection, Adult. - Prescriptions for Cephalexin 500 mg Oral Capsule - take 1 capsule by ORAL route every 12 hours for 10 days; 20 capsule. Cipro 500 mg Oral Tablet - take 1 tablet by ORAL route every 12 hours for 10 days; 20 tablet. - Medication Reconciliation Form, Thank You Letter, Antibiotic Education, Prescription Opioid Use form. - Follow up: Private Physician; When: 2 - 3 days; Reason: Recheck today's complaints, Continuance of care, Re-evaluation by your physician. Signatures: Dispatcher [employer] Scott Leach MD MD cha Mickail, Joel, PA PA jmm Calderon, Audri RN RN aa5 Chino Downing RN RN jl7 Corrections: (The following items were deleted from the chart) 06/27 12:54 11:50 Allergies: No Known Allergies; aa5 aa5 15:41 14:54 06/27/2020 14:54 Discharged to Home. Impression: Urinary tract infection, site aa5 not specified. Condition is Stable. Forms are Medication Reconciliation Form, Thank You Letter, Antibiotic Education, Prescription Opioid Use. Follow up: Private Physician; When: 2 - 3 days; Reason: Recheck today's complaints, Continuance of care, Re-evaluation by your physician. thad
[2020-06-27] MEDS ORDERED: CEFTRIAXONE/SWI 1gm 1 GM/10 ML SYR ONE (15:38)
[2020-06-27] MEDS ORDERED: CIPROFLOXACIN HCL 500 MG TAB ONE (15:38)
[2020-06-27 15:48] VITALS: TEMP 99.1
[2020-06-27 15:49] VITALS: O2SAT 100
[2020-06-27 15:51] VITALS: BP 134/89
== END 2020-06-27 15:41 | disposition home or self-care (01) ==
LOC: ER 11:35
DX: N39.0 Urinary tract infection, site not specified (principal); I10 Essential (primary) hypertension; Z88.2 Allergy status to sulfonamides; Z88.8 Allergy status to other drugs, medicaments and biological substances
CPT/HCPCS: 87040 ×2; 87088; 85025; 87086; 80048; 36415; 80076; 83605; 87077; 87186; 81003; 83690; 84145; 74177; 96374; 99284; Q9967; J0696

== ENCOUNTER 2021-01-25 09:31 | Emergency (ER) | payer OTHER ==
[2021-01-25 10:03] LABS: Absolute Lymphocytes (CBC) 0.5 K/uL (0.7-4.9); Basophils % 0.2 % (0-1.3); Hematocrit 43.3 % (39.6-49.0); Lymphocytes % 9.6 % (15.3-44.8); MPV 7.7 fL (7.6-11.3); RBC Red Blood Cell Count 4.23 M/uL (4.33-5.43)
[2021-01-25] MEDS ORDERED: NA CHLORIDE 0.9% 500 ML ONE (10:10)
[2021-01-25] MEDS ORDERED: DIPHENOX/ATROP SULF 1 TAB PO ONE (10:10)
[2021-01-25 10:22] LABS: Albumin 3.9 g/dL (3.4-5.0); Bilirubin Direct 0.3 mg/dL (0-0.2); Bilirubin Total 1.1 mg/dL (0.2-1.0); Potassium 3.7 mmol/L (3.5-5.1); Protein, Total 7.7 g/dL (6.4-8.2)
--- NOTE | 2021-01-25 11:07 | EDPHYS ---
Physician Documentation [facility] Name: Jorje Stewart Age: 65 yrs Sex: Male : 1955 Arrival Date: 01/25/2021 Time: 09:33 Bed 16 Private MD: ED Physician Cosme Akbar HPI: 01/25 11:04 This 65 yrs old Male presents to ER via EMS with complaints of Headache, tw4 Diarrhea. 11:04 The patient presents to the emergency department with diarrhea, 10 times since the tw4 onset of symptoms. Onset: The symptoms/episode began/occurred 3 day(s) ago. Possible causes: unknown. The symptoms are aggravated by nothing. The symptoms are alleviated by nothing. The patient has not experienced similar symptoms in the past. Historical: - Allergies: 09:36 Silvadene; ll1 09:36 Sulfadiazine; ll1 - PMHx: 09:36 Hypertension; ll1 - PSHx: 09:36 Hernia repair; ll1 - Immunization history:: Flu vaccine status is unknown. - Social history:: Smoking status: Patient denies any tobacco usage or history of. ROS: 11:04 Constitutional: Negative for fever, chills, and weight loss, Eyes: Negative for injury, tw4 pain, redness, and discharge, Cardiovascular: Negative for chest pain, palpitations, and edema, Respiratory: Negative for shortness of breath, cough, wheezing, and pleuritic chest pain, Back: Negative for injury and pain, MS/Extremity: Negative for injury and deformity, Skin: Negative for injury, rash, and discoloration, Neuro: Negative for headache, weakness, numbness, tingling, and seizure. 11:04 Abdomen/GI: Positive for diarrhea, Negative for abdominal pain, nausea and vomiting, nausea, vomiting, and diarrhea, vomiting, black/tarry stool, rectal pain. Exam: 11:04 Constitutional: This is a well developed, well nourished patient who is awake, alert, tw4 and in no acute distress. Head/Face: Normocephalic, atraumatic. Chest/axilla: Normal chest wall appearance and motion. Nontender with no deformity. No lesions are appreciated. Cardiovascular: Regular rate and rhythm with a normal S1 and S2. No gallops, murmurs, or rubs. Normal PMI, no JVD. No pulse deficits. Respiratory: Lungs have equal breath sounds bilaterally, clear to auscultation and percussion. No rales, rhonchi or wheezes noted. No increased work of breathing, no retractions or nasal flaring. Abdomen/GI: Soft, non-tender, with normal bowel sounds. No distension or tympany. No guarding or rebound. No evidence of tenderness throughout. Back: No spinal tenderness. No costovertebral tenderness. Full range of motion. MS/ Extremity: Pulses equal, no cyanosis. Neurovascular intact. Full, normal range of motion. Neuro: Awake and alert, GCS 15, oriented to person, place, time, and situation. Cranial nerves II-XII grossly intact. Motor strength 5/5 in all extremities. Sensory grossly intact. Cerebellar exam normal. Normal gait. Vital Signs: 09:34 Pain 0/10; ll1 09:41 BP 132 / 93; Pulse 84; Resp 17; Temp 98.5; Pulse Ox 100% ; ll1 10:07 BP 139 / 86; Pulse 84; Resp 16; Pulse Ox 100% on R/A; vg1 11:00 BP 147 / 96; Pulse 80; Resp 16; Pulse Ox 100% on R/A; vg1 MDM: 11:04 Differential diagnosis: Nonspecific abd pain, gastritis, cholecystitis. Data reviewed: 4 vital signs, nurses notes, lab test result(s), CBC, hepatic panel, covid negative. Data interpreted: Pulse oximetry: Interpretation: normal. Counseling: I had a detailed discussion with the patient and/or guardian regarding: the historical points, exam findings, and any diagnostic results supporting the discharge/admit diagnosis. Medication response: lomotil. Response to treatment: the patient's symptoms have markedly improved after treatment, and as a result, I will discharge patient. Special discussion: I discussed with the patient/guardian in detail that at this point there is no indication for admission to the hospital. It is understood, however, that if the symptoms persist or worsen the patient needs to return immediately for re-evaluation. 11:06 Patient medically screened. 01/25 09:38 Order name: Basic Metabolic Panel 01/25 09:38 Order name: CBC with Diff 01/25 09:38 Order name: Hepatic Function 01/25 09:38 Order name: Lipase 4 01/25 09:38 Order name: COVID-19 : Document "Date of Symptom Onset" if Symptomatic. 01/25 09:38 Order name: Basic Metabolic Panel; Complete Time: 11:03 EDMS 01/25 11:03 Interpretation: Normal except: GFR 84; NA 132. 01/25 09:38 Order name: IV Saline Lock; Complete Time: 09:49 4 01/25 09:38 Order name: CBC with Automated Diff; Complete Time: 11:03 EDMS 01/25 11:03 Interpretation: Normal except: RBC 4.23; MCV 102.2; MCH 35.2; LYM% 9.6; KERWIN% 81.8; LYMA tw4 0.5. 01/25 09:38 Order name: Liver (Hepatic) Function; Complete Time: 11:03 EDMS 01/25 11:03 Interpretation: Normal except: BILIT 1.1; BILID 0.3; GLOB 3.8; A/G 1.0. 01/25 09:38 Order name: Lipase; Complete Time: 11:03 EDMS 01/25 11:04 Interpretation: Within normal limits: LIP 76. 4 01/25 10:58 Order name: SARS-COV-2 RT PCR; Complete Time: 11:03 EDMS 01/25 11:04 Interpretation: Within normal limits: SARSCOV2 RT PCR NEGATIVE. 01/25 09:38 Order name: Labs collected and sent; Complete Time: 09:49 tw4 Administered Medications: 10:05 Drug: LoMOTIL (diphenoxylate-atropine) 2 tabs Route: PO; vg1 10:55 Follow up: Response: No adverse reaction vg1 10:06 Drug: NS 0.9% 500 ml Route: IV; Rate: bolus; Site: left antecubital; vg1 10:55 Follow up: IV Status: Completed infusion; IV Intake: 500ml vg1 Disposition: 01/25/21 11:06 Discharged to Home. Impression: Other viral enteritis. - Condition is Stable. - Discharge Instructions: Diarrhea, Adult, Viral Gastroenteritis, Adult, [place] Diet. - Prescriptions for Bentyl 20 mg Oral Tablet - take 1 tablet by ORAL route every 6 hours As needed; 20 tablet. Lomotil 2.5- 0.025 mg Oral Tablet - take 2 tablet by ORAL route once daily As needed; 20 tablet. - Medication Reconciliation Form, Thank You Letter, Antibiotic Education, Prescription Opioid Use form. - Follow up: Private Physician; When: Upon discharge from the Emergency Department; Reason: Recheck today's complaints, Continuance of care, Re-evaluation by your physician. - Problem is new. - Symptoms have improved. Signatures: Dispatcher [employer] EDDC Guillermina Joshua RN RN ss Cosme Akbar MD MD tw4 Karlee Marmolejo RN RN vg1 Herminia Kong RN RN ll1 Corrections: (The following items were deleted from the chart) 10:16 09:38 CORONAVIRUS ordered. [facility] EDDC 11:28 11:06 01/25/2021 11:06 Discharged to Home. Impression: Other viral enteritis. Condition ss is Stable. Forms are Medication Reconciliation Form, Thank You Letter, Antibiotic Education, Prescription Opioid Use. Follow up: Private Physician; When: Upon discharge from the Emergency Department; Reason: Recheck today's complaints, Continuance of care, Re-evaluation by your physician. Problem is new. Symptoms have improved. tw4
--- NOTE | 2021-01-25 11:07 | ER ---
Nurse's Notes [facility] Name: Jorje Stewart Age: 65 yrs Sex: Male : 1955 Arrival Date: 01/25/2021 Time: 09:33 Bed 16 Private MD: Diagnosis: Other viral enteritis Presentation: 01/25 09:34 Chief complaint: EMS states: BURGER, nausea/diarrhea for a few days. + gen weakness. No ll1 fever. Coronavirus screen: Client denies travel out of the [place] in the last 14 days. diarrhea, fatigue, headache, nausea, Client presents with at least one sign or symptom that may indicate coronavirus-19. Standard/surgical mask placed on the client. Ebola Screen: Patient denies travel to an Ebola-affected area in the 21 days before illness onset. Initial Sepsis Screen: Does the patient meet any 2 criteria? No. Patient's initial sepsis screen is negative. Does the patient have a suspected source of infection? Yes: Acute abdominal pain. Risk Assessment: Do you want to hurt yourself or someone else? Patient reports no desire to harm self or others. Onset of symptoms was January 23, 2021. 09:34 Method Of Arrival: EMS: [facility] ll1 09:34 Acuity: ARGENIS 3 ll1 Triage Assessment: 09:40 General: Appears in no apparent distress. Behavior is calm, cooperative, appropriate ll1 for age. Pain: Complains of pain in abd Quality of pain is described as aching, Pain began 2-3 days ago. Also complains of nausea. EENT: No deficits noted. Neuro: Level of Consciousness is awake, alert, obeys commands, Oriented to person, place, time, situation, Appropriate for age [employer] Mechanical are equal bilaterally Moves all extremities. Full function Speech is normal, Facial symmetry appears normal, Reports headache. Cardiovascular: No deficits noted. Respiratory: No deficits noted. GI: Abdomen is flat, Bowel sounds present X 4 quads. Abd is soft and non tender X 4 quads. Reports cramping, diarrhea, nausea. Historical: - Allergies: 09:36 Silvadene; ll1 09:36 Sulfadiazine; ll1 - PMHx: 09:36 Hypertension; ll1 - PSHx: 09:36 Hernia repair; ll1 - Immunization history:: Flu vaccine status is unknown. - Social history:: Smoking status: Patient denies any tobacco usage or history of. Screenin:07 Abuse screen: Denies threats or abuse. Nutritional screening: No deficits noted. vg1 Tuberculosis screening: No symptoms or risk factors identified. Fall Risk No fall in past 12 months (0 pts). No secondary diagnosis (0 pts). IV access (20 points). Ambulatory Aid- None/Bed Rest/Nurse Assist (0 pts). Gait- Normal/Bed Rest/Wheelchair (0 pts) Mental Status- Oriented to own ability (0 pts). Total Edwards Fall Scale indicates No Risk (0-24 pts). Assessment: 10:06 General: Appears in no apparent distress. comfortable, Behavior is calm, cooperative. vg1 Pain: Complains of pain in headache Pain currently is 6 out of 10 on a pain scale. Neuro: Level of Consciousness is awake, alert, obeys commands, Oriented to person, place, time, situation. Cardiovascular: Patient's skin is warm and dry. Respiratory: Airway is patent Respiratory effort is even, unlabored. GI: Reports diarrhea. : No signs and/or symptoms were reported regarding the genitourinary system. EENT: No signs and/or symptoms were reported regarding the EENT system. Derm: Skin is intact, Skin is pink, warm \\T\\ dry. Musculoskeletal: Circulation, motion, and sensation intact. 10:59 Reassessment: Patient appears in no apparent distress at this time. No changes from vg1 previously documented assessment. Patient and/or family updated on plan of care and expected duration. Pain level reassessed. Patient is alert, oriented x 3, equal unlabored respirations, skin warm/dry/pink. Vital Signs: 09:34 Pain 0/10; ll1 09:41 BP 132 / 93; Pulse 84; Resp 17; Temp 98.5; Pulse Ox 100% ; ll1 10:07 BP 139 / 86; Pulse 84; Resp 16; Pulse Ox 100% on R/A; vg1 11:00 BP 147 / 96; Pulse 80; Resp 16; Pulse Ox 100% on R/A; vg1 ED Course: 09:33 Patient arrived in ED. 1 09:34 [facility]erna [facility] 09:34 Cosme Akbar MD is Attending Physician. [facility] 09:35 Triage completed. ll1 09:36 Arm band placed on Patient placed in an exam room, on a stretcher. ll1 09:48 Herminia Kong, RN is Primary Nurse. ll1 09:56 Basic Metabolic Panel Sent. mh5 09:56 COVID-19 : Document "Date of Symptom Onset" if Symptomatic. Sent. mh5 09:56 CBC with Diff Sent. mh5 09:56 Hepatic Function Sent. mh5 09:56 Lipase Sent. mh5 09:57 Primary Nurse role handed off by Herminia Kong, DAVIS vg1 09:57 Karlee Marmolejo, RN is Primary Nurse. vg1 09:57 Patient has correct armband on for positive identification. Placed in gown. Bed in low mh5 position. Call light in reach. Side rails up X 1. Warm blanket given. front desk monitor on. Pulse ox on. NIBP on. 11:22 No provider procedures requiring assistance completed. IV discontinued, intact, ss bleeding controlled, No redness/swelling at site. Pressure dressing applied. Administered Medications: 10:05 Drug: LoMOTIL (diphenoxylate-atropine) 2 tabs Route: PO; vg1 10:55 Follow up: Response: No adverse reaction vg1 10:06 Drug: NS 0.9% 500 ml Route: IV; Rate: bolus; Site: left antecubital; vg1 10:55 Follow up: IV Status: Completed infusion; IV Intake: 500ml vg1 Intake: 10:55 IV: 500ml; Total: 500ml. vg1 Outcome: 11:06 Discharge ordered by . [facility] 11:22 Discharged to home ambulatory. 11:22 Condition: good 11:22 Discharge instructions given to patient, Instructed on discharge instructions, follow up and referral plans. medication usage, Demonstrated understanding of instructions, follow-up care, medications. 11:28 Patient left the ED. ss Signatures: Kevyn Serna PA PA jmm Smirch, Shelby, RN RN Lena Fuller [facility] Cosme Akbar MD MD [facility] Karlee Marmolejo RN RN 1 Herminia Kong RN RN [facility]
[2021-01-25 11:34] VITALS: TEMP 98.5; O2SAT 100
[2021-01-25 11:37] VITALS: BP 147/96
== END 2021-01-25 11:28 | disposition home or self-care (01) ==
LOC: ER 09:31
DX: A08.39 Other viral enteritis (principal); I10 Essential (primary) hypertension; Z20.822 Contact with and (suspected) exposure to COVID-19; Z88.2 Allergy status to sulfonamides; Z88.8 Allergy status to other drugs, medicaments and biological substances
CPT/HCPCS: 85025; 80048; 36415; 80076; 83690; U0003; J7040; 96360; 99284